=== PATIENT | male | born 1970 | race Caucasian/White ===

== ENCOUNTER 2016-09-17 08:10 | Outpatient (CLI) ==
[2016-04-22 22:21] VITALS: BMI 29.4
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
== END 2016-09-17 08:11 | disposition home or self-care (01) ==
LOC: RAD 08:10
PROVIDERS: ATTEND Physician Assistant
DX: M25.512 Pain in left shoulder (principal)

== ENCOUNTER 2016-10-13 08:15 | Outpatient (RCR) ==
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
--- NOTE | 2016-10-08 11:38 | RS.CXNS ---
Date of scheduled appointment: 10/08/16 Type: Cancel Reason for Cancel/NS: Has to work, rescheduled
--- NOTE | 2016-10-12 10:32 | RS.CXNS ---
Date of scheduled appointment: 10/12/16 Type: No Show Reason for Cancel/NS: Patient calls 20 mins past appt and said he forgot. Rescheduled for tomorrow @ 895.
--- NOTE | 2016-10-13 12:05 | RS.OPPTDN ---
Subjective Date of Note: 10/13/16 Visit #: 2 Date of Evaluation: 10/06/16 Payer Source: Medicaid Treatment Diagnosis: Rotator cuff tear Current Subjective/complaints:: Patient states he has multiple places of pain and has had it chronically that he does not realize when he doesn't hurt. He says that he continues to work out so that he strengthens and is distracted by his pain. He says he also has difficulty sleeping. He says when he does take percocet, it does not phase his pain at all. Reports he is off today. Pain Assessment - Pain Description Pain Location: Left shoulder Pain Description: Sharp, Throbbing Current Pain Intensity: 3-4/10 - Treatment Modality: Ultrasound Parameters/Method Applied: Pulsed @ 1.0 w/cm2 x 12 mins 20% to the L shoulder joint Patient Position: Sitting - Heat/Cryotherapy Treatment: Cryotherapy (20 mins to the L shoulder in sitting after therex) Interventions - Exercise/Activities/Manual Therapy Exercises/Activities: PROM all directions supine, GH joint mobs A/P and long axis joint distraction, Manual isometrics for IR/ER. Total minutes of Exercise: 25 Manual Therapy: NA - Charges Total Direct Minutes: 37 Total Treatment Time: 57 Procedures billed for this date of service:: cp, u/s, ex2 Assessment: Patient kirstin all therex well, but with some soreness to the L scapula with abd and flex passively. Patient has good strength, but needs stretching of the pects and strengthening of RTC group. Modalities kirstin well and should continue in further sessions. Patient Education: Education of diagnosis, Body/Joint mechanics, Home Exercise Program, Home Safety, Activity Modification, Education of Plan of Care Short Term Goals Goal #1: Independent in basic HEP. Goal to be met by: 10/15/16 Goal #2: IR/ER of left shoulder with minimal pain. Goal to be met by: 10/15/16 Custodial Goals Goal #1: Improved pain in left shoulder by 25%. Goal to be met by: 10/22/16 Goal #2: Patient is independent in HEP to miantain rotator cuff strength. Goal to be met by: 10/22/16 Goal #3: Patient is unawakened by left shoulder pain. Goal to be met by: 10/22/16 Plan PLAN OF CARE EXPIRES ON:: 10/22/16 ORDER # VISITS AND/OR THROUGH DATE: 10/22/2016 PLAN: Continue Plan of Care
[2016-10-18 21:01] VITALS: BMI 31.3
--- NOTE | 2016-11-17 16:09 | RS.QUICKDC ---
Discharge from PT Date of Discharge: 11/17/16 Number of Visits: 2 Reason for Discharge: Patient has no showed several visits and order/approval dates had . Patient had several areas of pain, but received treatment for L shoulder pain/ROM limitation. He received pulsed u/s, cryotherapy, and therex consisting of PROM, GH joint mobs, and strengthening. He received HEP and education of proper body mechanics as able to apply with job duties, and posture. He presents with ROM WFL actively and good strength generally during isometrics. No goals met due to lack of attendance. Therefore, final measurements/assessment was not applied.
== END 2016-10-19 ==
PROVIDERS: ATTEND Family Medicine
DX: M75.102 Unspecified rotator cuff tear or rupture of left shoulder, not specified as traumatic (principal)

== ENCOUNTER 2016-10-18 20:56 | Emergency (ER) ==
[2016-10-18 21:01] VITALS: TEMP 97.4; BMI 31.3
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
[2016-10-18 21:39] LABS: FLU INTERNAL QC INTERNAL QC VALID; RAPID FLU A NEGATIVE (NEGATIVE); RAPID FLU B NEGATIVE (NEGATIVE)
[2016-10-18 22:11] VITALS: BP 118/76
--- NOTE | 2016-10-19 07:46 | DI ---
EXAM: Three views of the soft tissues of the neck HISTORY: 2 weeks of dysphasia. COMPARISON: None FINDINGS: Frontal view of the soft tissues of the neck demonstrate a patent airway. The epiglottis is unremarkable. Lateral view is unremarkable with normal prevertebral soft tissues. The airways o n lateral view is normal in appearance. The osseous structures are unremarkable. IMPRESSION: No acute radiographic abnormality to account for patient's symptoms.
== END 2016-10-18 22:40 | disposition home or self-care (01) ==
LOC: ED 20:56
DX: R13.13 Dysphagia, pharyngeal phase (principal); J02.9 Acute pharyngitis, unspecified
CPT/HCPCS: 87651; 87804; 87880; 99283

== ENCOUNTER 2017-09-26 20:21 | Outpatient (CLI) ==
--- NOTE | 2017-09-27 07:57 | DI ---
EXAM: Left knee four views HISTORY: Pain COMPARISON: None. FINDINGS: There is no evidence of fracture or joint effusion. Minimal spurring is noted about the l ateral tibial spine. The joint spaces are maintained. IMPRESSION: No acute findings.
== END 2017-09-26 20:22 | disposition home or self-care (01) ==
LOC: RAD 20:21
PROVIDERS: ATTEND Nurse Practitioner Family
DX: M25.562 Pain in left knee (principal)

== ENCOUNTER 2017-12-27 21:00 | Outpatient (CLI) | END 2017-12-27 21:01 | disposition left against medical advice (07) | LOC: AMBL 21:00 | PROVIDERS: ATTEND Family Medicine | DX: S61.011A Laceration without foreign body of right thumb without damage to nail, initial encounter (principal); S61.212A Laceration without foreign body of right middle finger without damage to nail, initial encounter; W45.8XXA Other foreign body or object entering through skin, initial encounter ==

== ENCOUNTER 2018-06-11 12:45 | Emergency (ER) ==
[2018-06-11 12:49] VITALS: BP 158/75; TEMP 97.1; BMI 31.7
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
== END 2018-06-11 15:16 | disposition home or self-care (01) ==
LOC: ED 12:45
DX: S30.0XXA Contusion of lower back and pelvis, initial encounter (principal); S70.01XA Contusion of right hip, initial encounter; S70.11XA Contusion of right thigh, initial encounter; S39.012A Strain of muscle, fascia and tendon of lower back, initial encounter; Y04.2XXA Assault by strike against or bumped into by another person, initial encounter; W19.XXXA Unspecified fall, initial encounter
CPT/HCPCS: 81001; 99283

== ENCOUNTER 2018-08-17 18:48 | Emergency (ER) ==
[2018-08-17 18:57] VITALS: BP 124/73; TEMP 98.6; BMI 30.8
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
== END 2018-08-17 20:36 | disposition home or self-care (01) ==
LOC: ED 18:48
DX: Z48.02 Encounter for removal of sutures (principal)
CPT/HCPCS: 99282

== ENCOUNTER 2018-11-11 11:32 | Emergency (ER) ==
[2018-11-11 11:40] VITALS: BP 144/100; TEMP 97.1; BMI 29.9
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
--- NOTE | 2018-11-11 12:35 | DI ---
EXAM: Ankle. Side: Left Views: Three,(AP, lateral and oblique). HISTORY: Pain. COMPARISON: None. FINDINGS: Bones: There are multiple calcified fragments distal to the fibula which appear to be old fracture fr agments. There is a subtle lucency in the distal fibula only seen on the oblique view. A nondisplac ed fracture cannot be excluded. Mineralization: Normal. Joints: Normal. No arthritis. Other findings: There are calcifications in the Achilles tendon and plantar spur. IMPRESSION: 1. Possible nondisplaced fracture of the distal left fibula. There is a subtle lucency without disp laced fragment or significant soft tissue swelling. Correlate for acute pain over the lateral malleo april. 2. Probable old fracture of the distal fibula or lateral talus. 3. Degenerative changes with calcific tendonitis in the Achilles tendon and the plantar tendon.
== END 2018-11-11 13:08 | disposition home or self-care (01) ==
LOC: ED 11:32
DX: S82.892A Other fracture of left lower leg, initial encounter for closed fracture (principal); M77.9 Enthesopathy, unspecified; M77.52 Other enthesopathy of left foot and ankle
CPT/HCPCS: 99282

== ENCOUNTER 2018-12-20 10:28 | Outpatient (CLI) ==
--- NOTE | 2018-12-20 10:58 | DI ---
EXAM: Three views of the left ankle. History: Left ankle pain. Comparison: Left ankle radiograph 10/14/2018 Findings: No acute fracture or dislocation. Large calcifications are again seen within the soft tis sues in the region of the distal Achilles tendon with associated soft tissue swelling. Calcification s are also seen along the course of the proximal plantar fascia. Joint spaces are relatively preserv ed. Impression: 1. No acute osseous abnormality. 2. No change in the large calcifications in the region of the distal Achilles tendon with associated soft tissue swelling consistent with calcific tendonitis. 3. No change in the plantar fascia calcifications.
--- NOTE | 2018-12-20 11:40 | DI ---
EXAM: Three views of the left foot. History: Left foot pain. Comparison: Left ankle radiograph 12/20/2018 Findings: No acute fracture or dislocation. Old healed fracture deformities of the second and third metatarsal shafts. Calcifications of the Achilles tendon and plantar fascia as previously described . Mild narrowing of the first MTP joint with small osteophytes. Mild to moderate arthritis seen at the mid foot. Impression: No acute osseous abnormality. Other findings detailed above
== END 2018-12-20 10:29 | disposition home or self-care (01) ==
LOC: RAD 10:28
PROVIDERS: ATTEND Physician Assistant
DX: M79.672 Pain in left foot (principal)

== ENCOUNTER 2018-12-21 11:55 | Outpatient (CLI) ==
--- NOTE | 2018-12-21 12:36 | DI ---
EXAM: Three views of the right foot. History: Right foot pain. Findings: No acute fracture or dislocation. 3 mm curvilinear radiodensity seen projecting over the soft tissues of the mid metatarsals. Joint spaces are preserved. Impression: 1. No acute osseous abnormality. 2. Possible soft tissue foreign body versus film artifact. Recommend repeat study when clinically f easible.
== END 2018-12-21 11:56 | disposition home or self-care (01) ==
LOC: RAD 11:55
PROVIDERS: ATTEND Podiatrist
DX: M76.62 Achilles tendinitis, left leg (principal); M25.572 Pain in left ankle and joints of left foot; M79.671 Pain in right foot; M72.2 Plantar fascial fibromatosis

== ENCOUNTER 2019-01-02 07:04 | Outpatient (CLI) ==
--- NOTE | 2019-01-02 09:39 | DI ---
EXAM: RIGHT FOOT, 3 VIEWS HISTORY: Plantar fasciitis FINDINGS: Bone and joint structures appear normal. No displaced fracture or joint dislocation is s een. There is no joint effusion. Soft tissues within normal limits. IMPRESSION: Within normal limits radiographically.
--- NOTE | 2019-01-02 11:35 | MRI ---
EXAM: MRI of the left ankle/hind-foot without contrast COMPARISON: Left ankle radiographs 12/20/2018. HISTORY: Left Achilles tendonitis and pain. Injury a few months ago. TECHNIQUE: Multiplanar noncontrast MR images of the left ankle/hind-foot were acquired using a 1.2 T esla magnet. Several sequences are moderately limited by patient motion artifact. FINDINGS: There is marked tendinosis along the distal 8.0 cm of the Achilles tendon extending throug h the insertional fibers. There is discontinuity of the Achilles with a cleft of fluid traversing th e full-thickness and full width of the tendon involving the posterior fibers in position 2.9 cm proxi mal to the calcaneal attachment and involving the deep/anterior fibers along the calcaneal attachment . More distally. There is up to 0.5 cm tendon retraction with extensive edema as well as scarring/f ibrosis throughout the adjacent soft tissues. There are extensive regions of ossification involving the Achilles tendon at that level suggesting heterotopic ossification/dystrophic calcification. Ther e also regions of susceptibility artifact at the level of the distal tendon extending medially which may represent sequela of previous surgery/small metallic foreign body at that site. Cleft of fluid t raversing the tendon gap extends immediately deep to the skin surface with contour deformity of the s kin at that level and correlation for signs of infection with soft tissue ulcer and draining tract is recommended. There is chronic deformity of the posterosuperior portion of the calcaneal tuberosity which may be related to sequela old trauma or previous surgery with some reactive marrow edema that s ite without an acute fracture. 1.0 cm plantar calcaneal spur with inflammation and scarring of the p roximal portion of the plantar fascia without fascial rupture. Subcutaneous edema throughout the tre l extending through the medial aspect the ankle/hind-foot. There are marked degenerative changes of the tarsometatarsal joints most severe at the fourth and fif th tarsometatarsal joints with chronic-appearing deformity of the fourth and fifth metatarsal bases a s well as the distal cuboid related to sequela of old trauma and/or degenerative remodeling. Degener ative change and remodeling at the articulation of the cuboid and lateral cuneiform. Marked joint sp janet narrowing with subchondral cystic change of the calcaneocuboid articulation. Moderate degenerati ve changes involve the remainder the ankle/hind-foot with 0.6 x 0.5 cm subchondral cyst/osteochondral lesion within the medial corner of the talar dome. Small joint effusions of the ankle/hind-foot. O s trigonum with secondary degenerative changes. The anterior tibial, extensor hallicus longus and extensor digitorum tendons are intact. There is ma rked posterior tibial tendinosis with partial thickness tearing of the tendon to the medial malleolus through the navicular tuberosity with some intact fibers identified. Flexor digitorum and flexor rodríguez llicus longus tendons are intact. Peroneus longus/brevis tendinosis with extensive partial/split tea r of the peroneus brevis from the lateral malleolus through the peroneal tubercle. Low grade partial tear of the peroneus longus at that level. Chronic sprain with scarring of the anterior and posterior tibiofibular ligaments without abnormal wi dening of the syndesmosis. Chronic sprain/partial tears scarring of the anterior/posterior talofibul ar and calcaneofibular ligaments. Chronic sprain with scarring of the deltoid ligament. IMPRESSION: 1. Marked distal Achilles tendinosis with a full-thickness tear/re-tear with tendon retraction and h eterotopic ossification/dystrophic calcification as described above. Foci of susceptibility artifact throughout the adjacent soft tissues suggesting sequela previous surgery versus small metallic forei gn body. Subcutaneous edema posteriorly with fluid along the tendon gap extending medially deep to t he skin surface posteriorly with contour deformity of the skin and clinical correlation for signs of infection with soft tissue ulcer/draining tract is recommended. Chronic deformity. Reactive marrow edema involving the calcaneal tuberosity. 2. Moderate to marked degenerative changes of the midfoot and hind foot as described above. Chronic deformity of the fourth/fifth metatarsal bases and cuboid as described. 3. Chronic sprains/partial tears with scarring of the medial and lateral supporting ligaments of the ankle as described. 4. Marked peroneus longus/brevis tendinosis and tenosynovitis with partial tears of both tendons as described. Tendinosis and chronic partial tear of the posterior tibial tendon.
== END 2019-01-02 07:05 | disposition home or self-care (01) ==
LOC: RAD 07:04
PROVIDERS: ATTEND Podiatrist
DX: M76.62 Achilles tendinitis, left leg (principal); M25.572 Pain in left ankle and joints of left foot; M79.671 Pain in right foot; M72.2 Plantar fascial fibromatosis